=== PATIENT | male | born 1930 | race Caucasian/White ===

== ENCOUNTER 2017-01-16 07:33 | Emergency (ER) | payer SELFPAY ==
[~2017-01-16] VITALS: Ht 147.3 cm; Wt 81.8 kg
[2017-01-16 07:44] VITALS: Ht 147.3 cm; Wt 81.8 kg
[2017-01-16] MEDS ORDERED: ESOM40CA PO (07:46)
[2017-01-16] MEDS ORDERED: SIME80TA53 PO (07:46)
[2017-01-16] MEDS ORDERED: AMIO200T2 PO (07:46)
[2017-01-16] MEDS ORDERED: AMLO-145 PO (07:52)
[2017-01-16] MEDS ORDERED: LAS20 PO (07:52)
[2017-01-16] MEDS ORDERED: ONDANSETRON (ODT) 4 MG TAB ODT ONE (08:00)
[2017-01-16] MEDS ORDERED: HYDROmorphONE 2 MG/ML SYG IV ONE (08:00)
--- NOTE | 2017-01-16 08:07 | ERD ---
ER Documentation Chief Complaint Chief Complaint Ground level fall in shower R lateral chest pain HPI This is an 86-year-old male who said he went to use the restroom this morning and turned in while and he turned he lost his balance and fell hitting his right rib cage on the side of the bathtub. He is complaining of sharp right rib pain is worse when he moves better when he rests. Denies any head injury or loss of consciousness. Denies any neck pain denies headache, denies back pain extremity pain pelvic pain no shortness of breath. No nausea vomiting. ROS All systems reviewed and are negative except as per history of present illness. Medications Home Meds Active Scripts Hydrocodone/Acetaminophen ([place] 5-325 Tablet) 1 Each Tablet, 1 TAB PO Q6H Y for PAIN, #7 TAB Prov:MADY ANDREWS DO 01/16/17 Reported Medications Furosemide (Lasix) 20 Mg Tab, 20 MG PO DAILY, TAB 01/16/17 Amlodipine Besylate* (Amlodipine Besylate*) 5 Mg Tablet, 5 MG PO DAILY, #30 TAB 01/16/17 Amiodarone Hcl* (Amiodarone Hcl*) 200 Mg Tablet, 200 MG PO DAILY, #30 TAB 01/16/17 Simethicone (GAS RELIEF) 80 Mg Tab.chew, 80 MG PO, TAB.CHEW 01/16/17 Esomeprazole Mag Trihydrate (Nexium) 40 Mg Capsule.dr, 40 MG PO DAILY, #30 CAP 01/16/17 Allergies Allergies: Coded Allergies: No Known Allergy (Unverified , 01/16/17) PMhx/Soc Hx Cardiac Disorders: Yes (afib) Hx Miscellaneous Medical Probl: Yes (GERD) Hx Alcohol Use: No Hx Substance Use: No Hx Tobacco Use: No Smoking Status: Never smoker FmHx Family History: No coronary disease Physical Exam Vitals Vital Signs Date Time Temp Pulse Resp B/P Pulse Ox O2 Delivery O2 Flow Rate FiO2 01/16/17 07:52 68 13 155/73 97 Room Air 01/16/17 07:44 68 13 155/73 97 Physical Exam Const: Well-developed, well-nourished Head: Atraumatic, normocephalic Eyes: Normal Conjunctiva, PERRLA, EOMI, normal sclera, no nystagmus ENT: Normal External Ears, Nose and Mouth, moist mucus membranes. Neck: Full range of motion. No meningismus, no lymphadenopathy. Resp: Clear to auscultation bilaterally, no wheezing, rhonchi, rales Cardio: Regular rate and rhythm, no murmurs, S1 S2 present, right chest wall is tender to palpation midaxillary line mid and lower ribs as well as the anterior rib cage. Abd: Soft, mild to moderate right upper quadrant non distended. Normal bowel sounds, no guarding or rebound, no pulsitile abdominal masses or bruits Skin: No petechiae or rashes, no ecchymosis , no maculopapular rash Back: No midline or flank tenderness Ext: No cyanosis, or edema, FROM x 4, normal inspection, neurovascularly intact x 4 Neur: Awake and alert, STR 5/5 x 4, sensation intact x 4, no focal findings, cerebellum intact Psych: Normal Mood and Affect Result Diagram: 01/16/17 08 Results 24 hrs Laboratory Tests Test 01/16/17 08:10 Sodium Level 138mmol/L Potassium Level 4.6mmol/L Chloride Level 102mmol/L Carbon Dioxide Level 27mmol/L Anion Gap 14 Blood Urea Nitrogen 12mg/dl Creatinine 1.05mg/dl Glucose Level 185mg/dl Calcium Level 9.3mg/dl Lipase 23U/L Current Medications Medications (Trade) Dose Ordered Sig/George Route PRN Reason Start Time Stop Time Status Last Admin Dose Admin Hydromorphone HCl (Dilaudid) 0.5 mg ONCE ONCE IV 01/16/17 08:00 01/16/17 08:01 DC 01/16/17 08:39 Ondansetron HCl (Zofran Odt) 4 mg ONCE ONCE ODT 01/16/17 08:00 01/16/17 08:01 DC 01/16/17 08:38 IV Flush 10 ml 10 ml STK-MED ONCE .ROUTE 01/16/17 09:23 01/16/17 09:24 DC Sodium Chloride (NS) 100 ml @ ud STK-MED ONCE .ROUTE 01/16/17 09:23 01/16/17 09:24 DC Iohexol (Omnipaque 300mg/ ml) 150 ml STK-MED ONCE .ROUTE 01/16/17 09:23 01/16/17 09:24 DC Procedures/MDM PROCEDURE: CT ABDOMEN AND PELVIS WITH IV CONTRAST. CLINICAL INDICATION: Right lower quadrant abdominal pain TECHNIQUE: CT scan of the abdomen and pelvis without contrast was performed on a multidetector high-resolution CT scanner following the use of IV contrast. Coronal and sagittal reformatted images were obtained from the axial source images. Images were reviewed on a high-resolution PACS workstation. The total exam CTDI equals 9.6 mGy and the total exam DLP equals 609.5 mGy-cm. One or more of the following dose reduction techniques were used: Automated exposure control. Adjustment of the mA and/or kV according to patient size. Use of iterative reconstruction technique. COMPARISON: None FINDINGS: CT abdomen: Bilateral lower lobe atelectasis is noted. Heart size is enlarged. There is no significant pericardial effusion. Hepatic morphology is within normal limits. No gross contour deforming masses. The gallbladder is within normal limits. No evidence of intrahepatic or extrahepatic biliary dilatation. The spleen is unremarkable. The pancreas is atrophic and several cystic lesions or septated single cystic lesion are noted within the tail of the pancreas, measuring 1.6 x 1.7 cm. There is mild peripancreatic fat stranding. Both adrenal glands are within normal limits. Both kidneys are in normal anatomic position. No evidence of obstruction or hydronephrosis. No gross renal/ureteric calculi. The visualized GI tract demonstrates a small hiatal hernia. Normal caliber loops of small and large bowel noted. No obstruction. The appendix is within normal limits. Atherosclerotic calcification of the aorta is identified. No significant retroperitoneal lymphadenopathy. CT pelvis: The prostate gland is mildly enlarged. There is a fat-containing right inguinal hernia. The bladder demonstrates mild thickening of the baeza. The rectosigmoid colon is within normal limits. No significant free fluid. No significant pelvic lymphadenopathy. The visualized osseous structures demonstrate multilevel degenerative disease of the spine. IMPRESSION: 1. Atrophic pancreas. There appears to be mild peripancreatic fat stranding. Recommend correlation with amylase and lipase levels to exclude acute pancreatitis. 2. Atrophic pancreas and several cystic lesions are septated single cystic lesion within the tail of pancreas measuring 1.6 x 1.7 cm. Although this could represent a benign entity such as pancreatic pseudocyst, correlate with history of possible chronic pancreatitis, cystic neoplasm is not completely excluded. No priors for comparison. Recommend follow-up MRI of the abdomen / MRCP with IV contrast. 3. The gallbladder is not visualized. Correlate with history of prior cholecystectomy. 4. No evidence of bowel obstruction. The appendix is within normal limits. Small hiatal hernia. 5. Atherosclerotic disease of the aorta. 6. Prostamegaly. 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 7. Fat-containing right inguinal hernia. 8. No free fluid or free air. No gross focal fluid collections. RPTAT: AAPP Physician Maureen Date Time Electronically viewed and signed by Physician Maureen on 01/16/2017 09:48 JL/ CC: MADY ANDREWS DO Ordering MD: MADY ANDREWS DO Location: E/R Room/Bed: PROCEDURE: XR Chest 1 view. CLINICAL INDICATION: Chest pain and trauma. Lower rib pain. TECHNIQUE: AP views of the chest were obtained. COMPARISON: None. FINDINGS: The heart is large. Calcified atherosclerosis is noted in the aorta. Scattered atelectasis is identified in the left lower lobe and lingula. Blunting of the left costophrenic angle is seen. Atelectasis is noted at the right lung base. No consolidations are identified. No pneumothorax is seen. The osseous structures appear intact. IMPRESSION: Cardiomegaly with calcified atherosclerosis in the aorta. Scattered atelectasis in the left lower lobe and lingula. Atelectasis at the right lung base. Blunting of the left costophrenic angle that could reflect small pleural effusion or scarring. If there is high clinical suspicion for traumatic injury, further evaluation with CT should be considered. RPTAT: AA .Jim Perez MD, Date Time Electronically viewed and signed by .Jim Perez MD, MD on 01/16/2017 08:27 .P/ CC: MADY ANDREWS DO PROCEDURE: XR ribs and AP chest. CLINICAL INDICATION: Lower rib pain. TECHNIQUE: AP chest and AP and oblique views of the right ribs were obtained. COMPARISON: Chest x-ray 01/16/2017. FINDINGS: There is a vertical fracture to the posterior right 11th rib. This is not visible on the prior chest x-ray dated 01/16/2017. The bony elements are rarefied. There are degenerative osteophytes in the thoracic spine. There are vascular calcifications in the aortic arch. The upper ribs are excluded from the field of view. IMPRESSION: 1. A vertical fracture is noted to the posterior right 11th rib of uncertain chronicity. This is likely subacute. 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 3. Cardiomegaly. 4. Atherosclerosis of the aortic arch. RPTAT:AAJJ Kwaku Hopson Physician Date Time Electronically viewed and signed by Kwaku Hopson, Physician on 01/16/2017 08:51 JM/ CC: MADY ANDREWS DO gave copy of CT Scan to fu for abnormal pancras Departure Diagnosis: Primary Impression: Rib fracture Encounter type: initial encounter Rib fracture type: single rib Fracture type: closed Laterality: right Qualified Code: S22.31XA - Closed fracture of one rib of right side, initial encounter Condition: Stable MADY ANDREWS DO Jan 16, 2017 08:07
--- NOTE | 2017-01-16 08:27 | RADRPT ---
PROCEDURE: XR Chest 1 view. CLINICAL INDICATION: Chest pain and trauma. Lower rib pain. TECHNIQUE: AP views of the chest were obtained. COMPARISON: None. FINDINGS: The heart is large. Calcified atherosclerosis is noted in the aorta. Scattered atelectasis is ident ified in the left lower lobe and lingula. Blunting of the left costophrenic angle is seen. Atelectas is is noted at the right lung base. No consolidations are identified. No pneumothorax is seen. Th e osseous structures appear intact. IMPRESSION: Cardiomegaly with calcified atherosclerosis in the aorta. Scattered atelectasis in the left lower lobe and lingula. Atelectasis at the right lung base. Blunting of the left costophrenic angle that could reflect small pleural effusion or scarring. If there is high clinical suspicion for traumatic injury, further evaluation with CT should be consi dered. RPTAT: AA .Jim Perez MD, Date Time Electronically viewed and signed by .Jim Perez MD, MD on 01/16/2017 08:27 .P/
--- NOTE | 2017-01-16 08:52 | RADRPT ---
PROCEDURE: XR ribs and AP chest. CLINICAL INDICATION: Lower rib pain. TECHNIQUE: AP chest and AP and oblique views of the right ribs were obtained. COMPARISON: Chest x-ray 01/16/2017. FINDINGS: There is a vertical fracture to the posterior right 11th rib. This is not visible on the prior chest x-ray dated 01/16/2017. The bony elements are rarefied. There are degenerative osteophytes in the t horacic spine. There are vascular calcifications in the aortic arch. The upper ribs are excluded fro m the field of view. IMPRESSION: 1. A vertical fracture is noted to the posterior right 11th rib of uncertain chronicity. This is lik jayne subacute. 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 3. Cardiomegaly. 4. Atherosclerosis of the aortic arch. RPTAT:AAJJ Physician Kiran Date Time Electronically viewed and signed by Kwaku Hopson Physician on 01/16/2017 08:51 JAIME/
[2017-01-16] MEDS ORDERED: SOD CHLORIDE 0.9% 100 ML ONE (09:23)
[2017-01-16] MEDS ORDERED: IOHEXOL 300MG/ML 150 ML BTL ONE (09:23)
--- NOTE | 2017-01-16 09:49 | RADRPT ---
PROCEDURE: CT ABDOMEN AND PELVIS WITH IV CONTRAST. CLINICAL INDICATION: Right lower quadrant abdominal pain TECHNIQUE: CT scan of the abdomen and pelvis without contrast was performed on a multidetector hig h-resolution CT scanner following the use of IV contrast. Coronal and sagittal reformatted images we re obtained from the axial source images. Images were reviewed on a high-resolution PACS workstation . The total exam CTDI equals 9.6 mGy and the total exam DLP equals 609.5 mGy-cm. One or more of the following dose reduction techniques were used: Automated exposure control. Adjustment of the mA and/or kV according to patient size. Use of iterative reconstruction technique. COMPARISON: None FINDINGS: CT abdomen: Bilateral lower lobe atelectasis is noted. Heart size is enlarged. There is no significant pericardi al effusion. Hepatic morphology is within normal limits. No gross contour deforming masses. The gallbladder is wi thin normal limits. No evidence of intrahepatic or extrahepatic biliary dilatation. The spleen is unremarkable. The pancreas is atrophic and several cystic lesions or septated single c ystic lesion are noted within the tail of the pancreas, measuring 1.6 x 1.7 cm. There is mild peripa ncreatic fat stranding. Both adrenal glands are within normal limits. Both kidneys are in normal anatomic position. No evidence of obstruction or hydronephrosis. No gross renal/ureteric calculi. The visualized GI tract demonstrates a small hiatal hernia. Normal caliber loops of small and large bowel noted. No obstruction. The appendix is within normal limits. Atherosclerotic calcification of the aorta is identified. No significant retroperitoneal lymphadenop athy. CT pelvis: The prostate gland is mildly enlarged. There is a fat-containing right inguinal hernia. The bladder demonstrates mild thickening of the baeza. The rectosigmoid colon is within normal limits. No signif icant free fluid. No significant pelvic lymphadenopathy. The visualized osseous structures demonstrate multilevel degenerative disease of the spine. IMPRESSION: 1. Atrophic pancreas. There appears to be mild peripancreatic fat stranding. Recommend correlation w ith amylase and lipase levels to exclude acute pancreatitis. 2. Atrophic pancreas and several cystic lesions are septated single cystic lesion within the tail of pancreas measuring 1.6 x 1.7 cm. Although this could represent a benign entity such as pancreatic p seudocyst, correlate with history of possible chronic pancreatitis, cystic neoplasm is not completel y excluded. No priors for comparison. Recommend follow-up MRI of the abdomen / MRCP with IV contrast . 3. The gallbladder is not visualized. Correlate with history of prior cholecystectomy. 4. No evidence of bowel obstruction. The appendix is within normal limits. Small hiatal hernia. 5. Atherosclerotic disease of the aorta. 6. Prostamegaly. There is mild thickening of the wall the bladder, likely secondary to chronic bladd er obstruction. 7. Fat-containing right inguinal hernia. 8. No free fluid or free air. No gross focal fluid collections. RPTAT: AAPP Physician Maureen Date Time Electronically viewed and signed by Physician Maureen on 01/16/2017 09:48 MINH/
[2017-01-16] MEDS ORDERED: HYDR-906 PO (11:57)
[2017-01-16 12:43] VITALS: BP 132/68; PULSE 63; RESP 18; TEMP 97.9
== END 2017-01-16 12:43 | disposition home or self-care (01) ==
LOC: E/R 07:33
DX: S22.31XA Fracture of one rib, right side, initial encounter for closed fracture (principal); R40.2142 Coma scale, eyes open, spontaneous, at arrival to emergency department; R40.2252 Coma scale, best verbal response, oriented, at arrival to emergency department; R40.2362 Coma scale, best motor response, obeys commands, at arrival to emergency department; W18.2XXA Fall in (into) shower or empty bathtub, initial encounter; Y92.89 Other specified places as the place of occurrence of the external cause
CPT/HCPCS: 36415; 71010; 71100; 74177; 80048; 83690; 96374; 99285; J1170; Q9967